=== PATIENT | female | born 1995 | race African-American/Black ===

== ENCOUNTER 2020-02-09 07:34 | Outpatient (CLI) | payer BC, SELFPAY ==
--- NOTE | ~2020-02-09 | US_ITS ---
EXAMINATION: US abdomen complete DATE: 02/09/2020 08:07 INDICATION: Epigastric abdominal pain TECHNIQUE: Multiple grayscale and Doppler ultrasound images of the abdomen were obtained. COMPARISON: None available FINDINGS: The head and body of the pancreas are normal. The pancreatic tail is obscured by bowel gas. The liver is normal with normal echogenicity and echotexture. No surface nodularity. Normal hepatope kaila flow in the main portal vein. The gallbladder is normal with no abnormal wall thickening, pericho lecystic fluid or stones. The normal common bile duct measures 4 mm. There was no sonographic [place] sign. The visualized portions of the aorta and inferior vena cava are normal. The right kidney measures 9.3 x 4.1 x 5.2 cm. The left kidney measures 9.4 x 5 x 4.8 cm. The kidneys demonstrate normal parenchymal echogenicity. There is no hydronephrosis. The spleen is normal in appe arance and measures 9.7 cm. IMPRESSION: 1. No sonographic correlate for the patient's symptoms. Reviewed, dictated and finalized at location A. [employer]ER
== END 2020-02-09 07:35 ==
LOC: MICIMG 07:35
PROVIDERS: PCP Physician Assistant; Visit Provider Physician Assistant
DX: R10.13 Epigastric pain (principal)
CPT/HCPCS: 76700